=== PATIENT | female | born 1940 | race Caucasian/White ===

== ENCOUNTER 2017-05-12 21:13 | Emergency (ER) | payer MEDICARE, OTHER ==
[~2017-05-12 21:13] MED LIST: CHILDREN'S ASPI81 MG PO; HCTZ25 MG PO; LOPRESSOR25 MG PO; NEXIUM40 MG PO; TYLENOL500 MG PO; [UNRECOGNIZED DRUG - OTHER] PO
[2017-05-12 22:13] LABS: BASOPHIL 0.4 % (0-2); EOSINOPHIL 3.9 % (0-7); HCT 35.6 % (37.0-47.0); HGB 12.1 g/dl (12.5-16.0); LYMPHOCYTE 25.7 % (15-48); MCH 27.1 pg (25.0-31.0); MCV 79.6 fL (78.0-100.0); MONOCYTE 11.4 % (0-12); NEUTROPHIL 58.6 % (41-80); PLT 291 K/uL (150-400); RBC 4.47 M/uL (4.20-5.40); RDW 14.5 % (11.5-14.0); WBC 8.4 K/uL (4.0-10.5)
[2017-05-12 22:26] LABS: INR 0.99 (0.9-1.2); PROTHROMBIN TIME 12.7 SECONDS (11.7-14.0); PTT 30.8 SECONDS (23.2-31.4)
[2017-05-12 22:32] LABS: ALBUMIN 4.2 g/dL (3.4-4.8); BILIRUBIN - TOTAL 0.3 mg/dL (0.1-1.0); CREATININE 0.8 mg/dL (0.5-1.0); GLOBULIN (CALCULATION) 2.1 g/dL (2.2-4.2); POTASSIUM 3.8 mmol/L (3.5-5.1); TOTAL PROTEIN 6.3 g/dL (6.4-8.3)
[2017-05-12 22:35] LABS: CKMB 2.45 ng/mL (0.97-4.94); MYOGLOBIN 36 ng/mL (26-65); TROPONIN T < 0.010 ng/mL
[2017-05-12 22:42] LABS: FT4 (FREE T4) 1.1 ng/dL (0.93-1.70); TSH (THYROID STIM HORMONE) 3.68 uIU/mL (0.270-4.200)
== END 2017-05-13 01:53 | disposition other institution (70) ==
LOC: FER 21:13
PROVIDERS: Emergency Medicine
DX: G45.9 Transient cerebral ischemic attack, unspecified (principal); I11.9 Hypertensive heart disease without heart failure; E78.5 Hyperlipidemia, unspecified; Z82.3 Family history of stroke; Z79.82 Long term (current) use of aspirin; Z79.02 Long term (current) use of antithrombotics/antiplatelets; Z79.899 Other long term (current) drug therapy; Z95.1 Presence of aortocoronary bypass graft
CPT/HCPCS: 36415; 70450; 71010; 80053; 80061; 80305; 82140; 82550; 82553; 83874; 84439; 84443; 84484; 85025; 85610; 85730; 93005

== ENCOUNTER 2021-03-04 12:17 | Emergency (ER) | payer OTHER, MEDICARE ==
[~2021-03-04 12:17] MED LIST changes: +PLAVIX75 M1 PO; +PRILOSEC20 MG PO; +VIT D PO
[2021-03-04] MEDS ORDERED: NORCO 5-325 TA1 EACH PO (14:37)
[2021-03-04] MEDS ORDERED: ONDANSETRON ODT4 MG PO (14:37)
== END 2021-03-04 15:07 | disposition home or self-care (01) ==
LOC: FER 12:17
DX: S81.812A Laceration without foreign body, left lower leg, initial encounter (principal); S40.021A Contusion of right upper arm, initial encounter; I10 Essential (primary) hypertension; Z95.1 Presence of aortocoronary bypass graft; Z95.5 Presence of coronary angioplasty implant and graft; Z88.5 Allergy status to narcotic agent; Z88.8 Allergy status to other drugs, medicaments and biological substances; V49.40XA Driver injured in collision with unspecified motor vehicles in traffic accident, initial encounter; Y92.410 Unspecified street and highway as the place of occurrence of the external cause
CPT/HCPCS: 71045; 72125; 72170; 73060; 73590; J1885

== ENCOUNTER 2021-03-04 16:31 | Emergency (ER) | payer OTHER, MEDICARE ==
[~2021-03-04 16:31] MED LIST changes: +NORCO 5-325 TA1 EACH PO; +ONDANSETRON ODT4 MG PO
[2021-03-04 17:34] LABS: BASOPHIL 0.3 % (0-2); EOSINOPHIL 0.5 % (0-7); HCT 35.9 % (37.0-47.0); HGB 12.3 g/dl (12.5-16.0); LYMPHOCYTE 9.3 % (15-48); MCH 29.9 pg (25.0-31.0); MCHC 34.3 g/dL (32.0-36.0); MCV 87.1 fL (78.0-100.0); MONOCYTE 7.4 % (0-12); MPV 10.3 fL (6.0-9.5); NEUTROPHIL 81.8 % (41-80); NRBC 0; PLT 283 K/uL (150-400); RBC 4.12 M/uL (4.20-5.40); RDW 13.3 % (11.5-14.0); WBC 19.1 K/uL (4.0-10.5)
[2021-03-04 18:16] LABS: ALBUMIN 3.5 g/dL (3.4-5.0); BUN/CREAT RATIO (CALC) 19.3 RATIO; CREATININE 1.14 mg/dL (0.51-0.95); GLOBULIN (CALCULATION) 3.3 g/dL; POTASSIUM 4.8 mmol/L (3.5-5.1); TOTAL PROTEIN 6.8 g/dL (6.4-8.2)
[2021-03-04 20:36] LABS: CPK 144 U/L (26-192); LIPASE 134 U/L (73-393)
[2021-03-04 21:07] LABS: LACTIC ACID 2.7 mmol/L (0.4-1.9)
== END 2021-03-04 22:38 | disposition home or self-care (01) ==
LOC: FER 16:31
PROVIDERS: Emergency Medicine; Emergency Medicine Emergency Medical Services
DX: S20.211A Contusion of right front wall of thorax, initial encounter (principal); R55 Syncope and collapse; K44.9 Diaphragmatic hernia without obstruction or gangrene; Z95.1 Presence of aortocoronary bypass graft; Z95.5 Presence of coronary angioplasty implant and graft; Z88.5 Allergy status to narcotic agent; Z88.8 Allergy status to other drugs, medicaments and biological substances; W19.XXXA Unspecified fall, initial encounter
CPT/HCPCS: 36415; 70450; 71260; 80053; 82550; 82553; 83605; 83690; 84484; 85025; 93005; Q9967